=== PATIENT | female | born 1990 | race Caucasian/White ===

== ENCOUNTER → 2022-10-21 16:19 | Outpatient (CLI) | payer MEDICAID, SELFPAY ==
--- NOTE | 2022-10-21 16:19 | US_ITS ---
FINAL REPORT CLINICAL HISTORY: right lower quadrant pain FINDINGS: Transvaginal sonographic images of the pelvis were obtained. The uterus measures 8.0 x 5.2 x 4.0 cm. The endometrium measures 7 mm, which is within normal limits. No uterine mass is identified. The right ovary measures 2.6 cm in length and left ovary measures 2 point cm in length. Normal blood flow seen to the ovaries. Small follicles are present in both ovaries. There is no evidence of free fluid. IMPRESSION: No acute abnormality identified. Reviewed, Interpreted and Dictated by Ronny Dunlap III, MD Transcribed by Caity Mccormack Authenticated and [facility]
== END ==
PROVIDERS: PCP Nurse Practitioner Family; Visit Provider Nurse Practitioner Obstetrics & Gynecology
DX: R10.31 Right lower quadrant pain (principal)
CPT/HCPCS: 76830

== ENCOUNTER → 2022-12-11 11:21 | Outpatient (CLI) | payer MEDICAID, SELFPAY ==
[2022-12-11 12:30] LABS: Basophils # 0.1 K/mm3 (0-0.2); Basophils % 1.1 % (0.1-2.0); Eosinophils # 0.5 K/mm3 (0.0-0.4); Hematocrit 42.1 % (37.0-47.0); Hemoglobin 13.6 g/dL (12.2-16.2); Lymphocytes # 2.3 K/mm3 (0.7-4.5); Lymphocytes % 25.1 % (10-50); Mean Corpuscular HGB Conc 32.3 g/dL (31.8-35.4); Mean Corpuscular Hemoglobin 31.7 pg (27.0-31.2); Mean Corpuscular Volume 97.9 fl (81-99); Monocytes # 0.4 K/mm3 (0.1-1.0); Neutrophils % 64.8 % (37.0-80.0); Platelet Count 445 K/mm3 (142-424); Red Cell Distribution Width 13.7 % (11.5-17.5); White Blood Count 9.3 K/mm3 (4.8-10.8)
[2022-12-11 12:54] LABS: Alanine Aminotransferase 235 U/L (12-78); Albumin Level 4.1 g/dl (3.5-5.0); Albumin/Globulin Ratio 1.6 (1.1-1.8); Alkaline Phosphatase 93 U/L (38-126); Anion Gap 12.4 mEq/L (5-15); Aspartate Amino Transferase 86 U/L (14-36); Bilirubin,Total 0.3 mg/dl (0.2-1.3); Blood Urea Nitrogen 15 mg/dl (7-17); Calcium 9.2 mg/dl (8.4-10.2); Carbon Dioxide 30 mmol/L (22.0-30.0); Chloride 104 mmol/L (98-107); Estimated Glomerular Filt Rate 84 ml/min (>60); GFR (African American) 101 ML/MIN (>60); Globulin 2.5 g/dL (1.3-3.2); Glucose 97 mg/dl (74-100); Potassium 4.4 mmoL/L (3.5-5.1); Sodium 142 mmol/L (136-145); Total Protein,Serum 6.6 g/dl (6.3-8.2)
[2022-12-11 13:20] LABS: HCG,Quantitative < 2 mIU/ml (0-5.42)
== END ==
PROVIDERS: PCP Family Medicine; Visit Provider Nurse Practitioner Obstetrics & Gynecology
DX: Z01.812 Encounter for preprocedural laboratory examination (principal); N80.9 Endometriosis, unspecified
CPT/HCPCS: 36415; 80053; 84702; 85025

== ENCOUNTER 2022-12-16 06:41 | Day surgery (SDC) | payer MEDICAID, SELFPAY ==
--- NOTE | 2022-12-15 09:29 | SUR.PREOP ---
Attempted to call patient regarding procedure tomorrow, no voicemail is set up. Will try again in the afternoon.
[2022-12-16] VITALS (10 sets, daily range): BP systolic 106–155; BP diastolic 66–91; PULSE 88–117; RESP 12–18; TEMP 36.8–37.2; O2SAT 93–98; BMI 43.1
--- NOTE | 2022-12-16 08:27 | EXP.ANES.CKL ---
[facility] Disclaimer: The information contained in this section may have been updated after the patient was seen, as this information can be updated by other users. Medical History Anxiety Depression History of bipolar disorder Surgical History H/O tubal ligation History of delivery Family History Other Anemia Asthma Cancer Diabetes FHx: mental illness Heart attack Hyperlipidemia Hypertension Kidney disease Stroke Substance abuse Thyroid disorder Social History Smoking Status: Current every day smoker alcohol intake: current substance use type: marijuana current occupational status: employed Travel in the last 8 weeks: None [facility] Anesthesia Checklist Patient Identification Patient Identification: Arm Band and Verbal (Name & ) Structural Data Planned Operative Procedure/s: diag lap Consent for Planned Operative Procedure(s) Verified: Yes Verified Documents: Surgical Consent NPO Status Verified Time NPO: 00:00 Additional verifications Patient : No Hx Blood Transfusions: No Blood Transfusion Reaction: No Airway Assessment C-Spine Mobility Assessed: Yes TMJ Mobility Assessed: Yes Dentition: Partials Neurological Assessment Level of Consciousness: Awake and Alert Hx Seizures: No Genitourinary Assessment Urinary Incontinence: None Psychosocial Assessment Concerns Regarding Surgery: anxiety Anesthesia Plan Anesthesia Risk discussed: Yes ASA Class: II Anesthesia Type: General
--- NOTE | 2022-12-16 09:57 | EXP.ANES.I ---
[facility] Anesthesia Record Part I Anesthesia Record I Intake, IV Amount: 700 Estimated blood loss (mL): 50 Urine output (mL): 25 Blood Pressure: 145/79 SaO2: 98 Pulse Rate: 107 Respiratory Rate: 12 Temperature: 98.4 F Patient is:: Awake and Stable Stable to PACU at:: 09:57
--- NOTE | 2022-12-16 09:57 | EXP.OP.NOTE ---
Date of procedure: 12/16/22 Pre-op Diagnosis:: Right lower quadrant pain, dysmenorrhea, possible endometriosis, possible appendicitis Post-op Diagnosis:: Right lower quadrant pain, dysmenorrhea, endometriosis of left pelvic sidewall, endometriosis of right anterior abdominal wall. Bilateral hydrosalpinx, possible chronic appendicitis Procedure performed:: Diagnostic laparoscopy, resection of endometriosis, cautery of endometriosis, laparoscopic appendectomy, removal of bilateral hydrosalpinx Surgeon:: Benito Rice MD MARGIN TRIMMER:: Other (Rajani Gandara) Anesthesia: GETA Estimated blood loss (mL): 50 Clinical Note:: She is a 32-year-old lady who complains of severe pain with her periods as well as chronic right lower quadrant pain. She was tender over McBurney's point. She says the pain really never goes away. She has a family history of endometriosis. After having discussed the risks and benefits we elected perform a diagnostic laparoscopy with possible resection of endometriosis as well as laparoscopic appendectomy for right-sided pain. Operative findings:: She had an area of endometriosis on the anterior right abdominal wall. It was approximately 5 mm in size. Her appendix looked normal but was rather stiff to palpate. She had bilateral hydrosalpinx from her previous Falope ring tubal ligation. The knuckles of tissue seem to have this hydrosalpinx. There was an area on the left pelvic sidewall overlying the uterosacral ligament that was somewhat hyperpigmented possibly consistent with old endometriosis. The rest the pelvis appeared normal. The upper abdomen appeared normal. Both ovaries appeared normal. There was a small follicle on the left ovary. Operative note:: She was taken the operating room where general anesthesia was found to be adequate. She was prepped and draped in the normal sterile fashion in the semilithotomy position. Weighted speculum placed in vagina and the antilipid the cervix was grasped with a tenaculum. We then inserted a Sonali uterine manipulator into the uterine cavity. I changed gloves and then repositioned the patient. I injected 10 cc of ropivacaine around the umbilicus and then made a small incision within the umbilicus. I inserted a Veress needle into the abdominal cavity. The abdominal cavity was then insufflated with carbon oxide gas to a pressure of 20 mmHg. I then inserted a 12 mm trocar under direct vision. I injected through and through at the pubic hairline, made a small incision and under direct vision inserted a 5 mm trocar here. I then injected through and through in the left lower quadrant lateral to the inferior epigastric arteries and inserted a 5 mm trocar here under direct vision. The findings were as previously dictated. I then grasped the anterior wall peritoneum and using harmonic scalpel remove this endometriosis in its entirety. I then turned my attention to the deep pelvis where we had seen endometriosis on the left pelvic sidewall. Using harmonic scalpel I cauterized the peritoneum overlying the uterosacral ligament. There was an area approximately 5 mm here. The rest the pelvis appeared normal. I then turned my attention to the tubes where there were approximately centimeter sized hydrosalpinx. Using harmonic scalpel I removed these in their entirety. These were placed in the cul-de-sac to be retrieved later. I then turned my attention to her appendix. I then grasped her appendix and using harmonic scalpel I was able to cut and cautery through the mesoappendix. I then changed camera's and using a 5 mm trocar through the suprapubic port I grasped the appendix. I then placed an Endo TAMAR stapler through the 12 mm trocar site and clamped across the base of the appendix. I then fired the stapler. There was a small amount of tissue that needed to be cut with harmonic scalpel. This freed up the appendix. The appendix was then placed in an Endo Catch bag along with the 2 samples from the fallopian
--- NOTE | 2022-12-16 11:25 | SUR.PHASEII ---
pt is waiting on meds to bed.
--- NOTE | 2022-12-17 10:07 | EXP.ANES.II ---
[facility] Anesthesia Record Part II Anesthesia Record Part II Discharge Time: 10:27 Destination: Surgical Day Care (OP Surgery) PACU nurse assessment reviewed?: Yes Patient Condition:: Good Anesthesia Complications:: None Swallowing reflex intact?: Yes Cyanosis?: No Blood Pressure: 140/80 Pulse Rate: 104 Temperature: 98.4 F Mental Status: Alert & Oriented Pain level:: 0 Nausea and/or vomitting:: None Intake, IV Amount: 0
[2022-12-17 10:08] VITALS: BP 140/80; PULSE 104; TEMP 36.9
== END 2022-12-16 11:53 | disposition home or self-care (01) ==
PROVIDERS: PCP Family Medicine; Visit Provider Nurse Practitioner Obstetrics & Gynecology
PROC: (CPT 49320; principal; 2022-12-16 08:30)
DX: N94.6 Dysmenorrhea, unspecified (principal); R10.31 Right lower quadrant pain; N80.C19 Endometriosis of the anterior abdominal wall, unspecified depth; K37 Unspecified appendicitis
CPT/HCPCS: 58662; 44979; 96374; J2405

== ENCOUNTER → 2023-05-14 11:49 | Outpatient (CLI) | payer MEDICAID, SELFPAY ==
[2023-05-14 12:44] LABS: Basophils # 0.1 K/mm3 (0-0.2); Basophils % 1.1 % (0.1-2.0); Eosinophils # 0.6 K/mm3 (0.0-0.4); Eosinophils % 6.4 % (0.1-12.0); Hematocrit 39.2 % (37.0-47.0); Hemoglobin 13.5 g/dL (12.2-16.2); Lymphocytes # 2.4 K/mm3 (0.7-4.5); Mean Corpuscular HGB Conc 34.5 g/dL (31.8-35.4); Mean Corpuscular Hemoglobin 33.7 pg (27.0-31.2); Mean Corpuscular Volume 97.6 fl (81-99); Mean Platelet Volume 7.7 fl (7.4-10.4); Monocytes # 0.3 K/mm3 (0.1-1.0); Monocytes % 3.9 % (1.7-9.3); Neutrophils # 5.3 K/mm3 (1.8-7.8); Neutrophils % 60.6 % (37.0-80.0); Platelet Count 395 K/mm3 (142-424); Red Blood Count 4.02 M/mm3 (4.20-5.40); White Blood Count 8.7 K/mm3 (4.8-10.8)
[2023-05-14 13:52] LABS: Alanine Aminotransferase 47 U/L (12-78); Albumin Level 3.8 g/dl (3.5-5.0); Albumin/Globulin Ratio 1.7 (1.1-1.8); Alkaline Phosphatase 77 U/L (38-126); Anion Gap 9.6 mEq/L (5-15); Aspartate Amino Transferase 40 U/L (14-36); Blood Urea Nitrogen 10 mg/dl (7-17); Calcium 8.8 mg/dl (8.4-10.2); Carbon Dioxide 29 mmol/L (22.0-30.0); Chloride 106 mmol/L (98-107); Estimated Glomerular Filt Rate 97 ml/min (>60); GFR (African American) 117 ML/MIN (>60); Globulin 2.2 g/dL (1.3-3.2); Glucose 97 mg/dl (74-100); Potassium 3.6 mmoL/L (3.5-5.1); Sodium 141 mmol/L (136-145)
[2023-05-14 13:56] LABS: Bilirubin,Total 0.1 mg/dl (0.2-1.3)
[2023-05-14 14:09] LABS: HCG,Quantitative < 2 mIU/ml (0-5.42)
== END ==
PROVIDERS: PCP Family Medicine; Visit Provider Nurse Practitioner Obstetrics & Gynecology
DX: N80.9 Endometriosis, unspecified (principal)
CPT/HCPCS: 36415; 80053; 84702; 85025

== ENCOUNTER 2023-05-21 09:32 | Observation (INO) | payer MEDICAID, SELFPAY ==
[2023-05-21] VITALS (22 sets, daily range): BP systolic 109–159; BP diastolic 63–93; PULSE 104–122; RESP 16–22; TEMP 36–36.8; O2SAT 90–99; BMI 41.0
--- NOTE | 2023-05-21 08:20 | P.PNANES_ITS ---
[facility] Disclaimer: The information contained in this section may have been updated after the patient was seen, as this information can be updated by other users. Medical History Anxiety Depression History of bipolar disorder Surgical History H/O tubal ligation History of appendectomy History of delivery History of laparoscopy Family History Other Anemia Asthma Cancer Diabetes FHx: mental illness Heart attack Hyperlipidemia Hypertension Kidney disease Stroke Substance abuse Thyroid disorder Social History Smoking Status: Current every day smoker alcohol intake: never substance use type: marijuana current occupational status: employed Travel in the last 8 weeks: None [facility] Anesthesia Checklist Patient Identification Patient Identification: Verbal (Name & ) Structural Data Admitted From: Home Planned Operative Procedure/s: [facility] Consent for Planned Operative Procedure(s) Verified: Yes NPO Status Verified Time NPO: 00:00 Additional verifications Anesthesia Reactions: No Hx Blood Transfusions: No Blood Transfusion Reaction: No Airway Assessment Mallampati Score:: Class II C-Spine Mobility Assessed: Yes TMJ Mobility Assessed: Yes Dentition: Dentures-good fit Neurological Assessment Level of Consciousness: Awake, Alert and Appropriate Anesthesia Plan Anesthesia Risk discussed: Yes Anesthesia Plan: Verified ASA Class: II Anesthesia Type: General
--- NOTE | 2023-05-21 09:26 | EXP.OP.NOTE ---
Date of procedure: 05/21/23 Pre-op Diagnosis:: Pelvic pain, endometriosis, dysmenorrhea, dyspareunia Post-op Diagnosis:: Pelvic pain, endometriosis, dysmenorrhea, dyspareunia Procedure performed:: Laparoscopically assisted vaginal hysterectomy, right salpingo-oophorectomy, left salpingectomy, Surgeon:: Benito Rice MD Application Packaging Specialist(s):: Dr. Negro PATROL GUARD:: Other (Corrine العراقي) Anesthesia: GETA Estimated blood loss (mL): 100 Clinical Note:: She is a 31-year-old lady who complains of severe dysmenorrhea, pelvic pain and dyspareunia. She has had a previous laparoscopy that confirmed endometriosis. As result of this she was offered laparoscopic-assisted vaginal hysterectomy and right salpingo-oophorectomy as well as left salpingectomy. She had constant right lower quadrant pain. Operative findings:: She had an anteverted somewhat bulky uterus. The ovaries appeared normal. The tubes appeared normal. They have been previously ligated. There was a spot of endometriosis on the bladder flap. There was also a small piece of endometriosis on the right uterine cornua. The rest the pelvis appeared normal. She had had a previous appendectomy by me. Operative note:: She was taken to the operating room where general anesthesia was found be adequate. She was prepped and draped in normal sterile fashion in the semilithotomy position. A weighted speculum was placed in the vagina and the anterior lip of the cervix was grasped with a tenaculum. An acorn uterine manipulator was then placed within the cervical os. I then changed gloves. I injected 10 cc of 0.5% ropivacaine around the umbilicus and made a small incision within the umbilicus. I inserted a Veress needle into the abdominal cavity. The abdominal cavity was then insufflated with carbon dioxide gas to a pressure of 20 mmHg. I then inserted an 11 mm trocar under direct vision. I injected through and through the pubic hairline, made a small incision here and inserted a 5 mm trocar under direct vision. I identified the inferior epigastric arteries on the left side, went lateral to these and injected through and through. I then made a small incision and inserted an 11 mm trocar under direct vision. A similar 11 mm trocar was placed on the right side. The left round ligament was then grasped and cut through with harmonic scalpel. This was followed by opening up the peritoneum anteriorly to the midline. I then grasped the tube on the left side and cut through this. This is followed by cutting through the left utero-ovarian ligament. I used Harmonic scalpel on the coagulation mode. I then took down the posterior aspect of the broad ligament to the level of the uterosacral ligament. I then skeletonized the uterine arteries on the left side and placed hemoclips on these. Using the harmonic scalpel on coagulation mode adjacent to the cervix I then took down these uterine arteries. I then further freed up the bladder anteriorly and laterally on the left side. I then turned my attention to the right side where I grasped the right round ligament and cut through this with harmonic scalpel.. The right tube was cut with harmonic scalpel. I then took down the anterior peritoneum to the midline joining up with the other side. I further dissected the bladder off. The posterior aspect of the right broad ligament was then taken down with harmonic scalpel. I skeletonized the uterine arteries on the right side. I applied hemoclips to the uterine arteries and staying adjacent to the cervix on the right side I took down the uterine arteries with harmonic scalpel on coagulation mode. I further freed up the bladder. We then assured hemostasis. I then freed up the right ovary and tube on the infundibulopelvic ligament. I then put Endoloops on the infundibulopelvic ligament and cut away the ovary and tube. This was placed in the pelvis to be retrieved at the vaginal portion of the surgery. I then turned my attention to t
--- NOTE | 2023-05-21 09:29 | P.PNANES_ITS ---
[facility] Anesthesia Record Part I Anesthesia Record I Intake, IV Amount: 900 Hydration: Adequate Estimated blood loss (mL): 100 Urine output (mL): 50 Blood Products used (#): none Blood Pressure: 147/75 SaO2: 90 Pulse Rate: 122 Airway Patency: Patent Respiratory Rate: 18 Temperature: 96.8 F Patient is:: Awake (Talking) and Stable Stable to PACU at:: 09:28
--- NOTE | 2023-05-21 10:00 | HMH.PHAINT1 ---
Pharmacy Intervention Comments: MEDICATION RECONCILIATION COMPLETED ON PATIENT USING EXTERNAL FILL HISTORY FROM PHARMACY. -[place] SARMIENTO, JERSOND
[2023-05-21 12:40] LABS: Microscopic,Cath URINE MICROSCOPIC (MICROSCOPIC)
[2023-05-21 12:46] LABS: Appearance,Urine/Cath CLEAR (Clear); Bilirubin,Cath Negative (Negative); Blood, Urine/Cath Negative (Negative); Color,Urine/Cath YELLOW (Yellow); Glucose,Urine/Cath (UA) Negative (Negative); Ketones,Urine/Cath Negative (Negative); Leukocyte Esterase,Cath Negative (Negative); Nitrate,Cath Negative (Negative); Protein,Urine/Cath 1+ (Negative); Specific Gravity, Urine/Cath >= 1.030 (1.005-1.030); Urobilinogen,Cath 0.2 EU/dl (0.2)
--- NOTE | 2023-05-21 12:57 | PC.NURSE ---
mother of the patient came to nurses station requesting pt to be pulled up in bed. upon entering room call light laying on pt's chest. pt's mom asked Karly Miah, Are you going to come to this side? when attempting to get to patient to pull her up. pt readjusted in bed and declines any other requests. call light w/i reach. upon going to exit patients room, pts mother stated she needs her pain medicine at 1:30 pt's mother educated on prn pain medication and patient having to call out for as needed medication.
--- NOTE | 2023-05-21 13:11 | P.PNANES_ITS ---
[facility] Anesthesia Record Part II Anesthesia Record Part II Discharge Time: 09:53 Destination: Obstetric PACU nurse assessment reviewed?: Yes Patient Condition:: Good Anesthesia Complications:: None Swallowing reflex intact?: Yes Airway Patency: Patent Cyanosis?: No Blood Pressure: 159/89 SaO2: 97 Respiratory Rate: 19 Pulse Rate: 117 Temperature: 97.8 F Mental Status: Alert & Oriented Pain level:: 5 Nausea and/or vomitting:: None Intake, IV Amount: 0 Hydration: Adequate
--- NOTE | 2023-05-21 15:43 | PC.NURSE ---
Dr. Rice at bedside. states pt may have regular diet, remove f/c and to have dx change prior to d/c tomorrow. aware of pt's heart rate of 107-120 bpm.
--- NOTE | 2023-05-21 16:35 | PC.NURSE ---
pt got up and ambulated around the room with assistance. pt tolerated well. pt back in bed and call light w/i reach.
--- NOTE | 2023-05-21 17:14 | EXP.HP ---
History of Present Illness *Admission Date: 05/21/23 *Reason for visit:: LAVH, RSO, left salpingectomy *History of present illness: She is a 33-year-old lady and she continues to have severe pain with intercourse as well as pelvic pain in general. When I examined her she was exquisitely tender in the uterus. She has tenderness in the right lower quadrant. She would like to go ahead with a hysterectomy. Given the fact that we have tried Orilissa, laparoscopy that proved the presence of endometriosis and she has had no relief despite all of this I think she would be a good candidate for LAVH. ? We will go ahead with an LAVH as well as a right salpingo oophorectomy since she has this right-sided pain. We will also do a left salpingectomy. She has had a laparoscopic appendectomy in the past as well. [facility] Disclaimer: The information contained in this section may have been updated after the patient was seen, as this information can be updated by other users. Medical History Anxiety Depression History of bipolar disorder Surgical History H/O tubal ligation History of appendectomy History of delivery History of laparoscopy Status post laparoscopic assisted vaginal hysterectomy Family History Substance abuse Diabetes Anemia Hyperlipidemia Kidney disease Heart attack FHx: mental illness Cancer Hypertension Thyroid disorder Stroke Asthma Social History Smoking Status: Current every day smoker alcohol intake: never substance use type: marijuana current occupational status: employed Travel in the last 8 weeks: None Review of Systems Review of Systems Review of systems:: pertinent systems reviewed and negative unless documented below Meds Home Medications and Allergies Home Medications Medication Instructions Recorded Confirmed Type aripiprazole 10 mg tablet 10 mg PO DAILY mood 12/11/22 05/21/23 History buspirone 15 mg tablet 15 mg PO BIDP PRN Anxiety 12/11/22 05/21/23 History ibuprofen 800 mg tablet 800 mg PO TIDP PRN Mild Pain 05/21/23 05/21/23 History (Scale Score 1-4) New Prescriptions to Start Prescriptions: Allergies Allergy/AdvReac Type Severity Reaction Status Date / Time No Known Allergies Allergy Verified 05/21/23 06:20 Exam Data for Last 24 hours Vital signs and Labs for Last 24 Hours: Temp Pulse Resp BP Pulse Ox O2 Del Method 98.1 F 113 H 18 139/84 94 L Room Air 05/21/23 13:00 05/21/23 17:00 05/21/23 17:00 05/21/23 17:00 05/21/23 17:00 05/21/23 17:00 Laboratory Results - last 24 hr 05/21/23 08:25: Urine Color Yellow, Urine Appearance Clear, Urine pH 6.0, Ur Specific [place] >= 1.030, Urine Protein 1+, Urine Glucose (UA) Negative, Urine Ketones Negative, Urine Blood Negative, Urine Nitrate Negative, Urine Bilirubin Negative, Urine Urobilinogen 0.2, Ur Leukocyte Esterase Negative, Urine RBC None, Urine WBC None, Ur Squamous Epith Cells None I & O for Last 24 hours: Intake & Output 05/19/23 05/20/23 05/21/23 05/22/23 11:59 11:59 11:59 11:59 Intake Total 900 / 900 0 / 0 Output Total 175 / 175 Balance 900 / 900 -175 / -175 Weight 210 lb Constitutional Constitutional: no acute distress *Routine HEENT Exam Head: Present normocephalic Eye: Present EOMI and PERRL ENT: Present mucous membranes moist *Routine Neck Exam Neck: Present supple; Absent lymphadenopathy *Routine Respiratory Exam Respiratory: Present CTA bilaterally *Routine Cardiovascular Exam Cardiovascular: Present RRR *Routine Abdominal Exam Abdominal: Present soft and normoactive bowel sounds; Absent tenderness *Routine Rectal Exam Rectal:: deferred *Routine Genitalia Exam Genitalia:: deferred *Routine Extremities Exam Extremities: Absent cyanosis, clubbing
--- NOTE | 2023-05-21 17:20 | PC.NURSE ---
lab called in regards to orders (H&H)
--- NOTE | 2023-05-21 17:21 | PC.NURSE ---
pt alert and oriented. lung sounds cta. abdomen round, soft, bowel sounds active. [address] on abdomen with telfa and tegaderm in place. scant amount of drainage to right sided dressing. no change from previous assessment. pt f/c was removed. pt was able to get up and walk around the room with standby assessment. pt back to bed with scuds in place. pt has requested prn pain meds around the clock. non-pharmacological pain interventions tried with repositioning and lighting. call light w/i reach. pt instructed to call for assistance.
--- NOTE | 2023-05-21 17:51 | PC.NURSE ---
labs sent at this time per nurse.
[2023-05-21 18:11] LABS: Hematocrit 37.3 % (37.0-47.0); Hemoglobin 12.6 g/dL (12.2-16.2)
--- NOTE | 2023-05-21 18:54 | PC.NURSE ---
pt assisted to the bathroom with standby assistance, pt reports dribbles.
[2023-05-22 00:32] VITALS: BP 134/76; PULSE 112; RESP 18; TEMP 36.4; O2SAT 95
--- NOTE | 2023-05-22 03:51 | PC.NURSE ---
Pt alert and oriented. lung sounds cta. abdomen soft, non-distended, bowel sounds present in all quadrants. four laparotomy sites still intact with telfa and tape, small amount of drainage noted on right dressing site. no changes from previous assessment. pt has rested throughout the night. pt rates pain 4/10 at this time. pt denies needs. call light w/i reach.
[2023-05-22 03:55] VITALS: BP 134/81; PULSE 114; RESP 17; TEMP 36.7; O2SAT 98
[2023-05-22 06:56] LABS: Basophils # 0.1 K/mm3 (0-0.2); Basophils % 0.5 % (0.1-2.0); Eosinophils # 0.2 K/mm3 (0.0-0.4); Eosinophils % 1.5 % (0.1-12.0); Hematocrit 36.4 % (37.0-47.0); Hemoglobin 12.4 g/dL (12.2-16.2); Lymphocytes % 20.4 % (10-50); Mean Corpuscular HGB Conc 34.1 g/dL (31.8-35.4); Mean Corpuscular Hemoglobin 34.2 pg (27.0-31.2); Mean Corpuscular Volume 100.2 fl (81-99); Monocytes # 0.6 K/mm3 (0.1-1.0); Monocytes % 4.2 % (1.7-9.3); Neutrophils # 10.7 K/mm3 (1.8-7.8); Neutrophils % 73.3 % (37.0-80.0); Platelet Count 372 K/mm3 (142-424); Red Blood Count 3.63 M/mm3 (4.20-5.40); Red Cell Distribution Width 13.8 % (11.5-17.5); White Blood Count 14.6 K/mm3 (4.8-10.8)
[2023-05-22 08:05] VITALS: BP 140/88; PULSE 122; RESP 18; TEMP 36.7; O2SAT 95
--- NOTE | 2023-05-22 11:21 | PC.NURSE ---
pt ringing out asking about when she will be discharged. called dr lloyd's office. staff stated she is in a procedure and has another one after this one so; we won't be out until around 12pm. pt informed and verbalized understanding.
[2023-05-22 11:59] VITALS: BP 127/91; PULSE 109; RESP 18; TEMP 36.7; O2SAT 96
[2023-05-22 12:49] LABS: Chloride 107 mmol/L (98-107); Potassium 3.4 mmoL/L (3.5-5.1); Sodium 137 mmol/L (136-145)
[2023-05-22 12:52] LABS: Anion Gap 6.4 mEq/L (5-15); Blood Urea Nitrogen 8 mg/dl (7-17); Calcium 8.1 mg/dl (8.4-10.2); Carbon Dioxide 27 mmol/L (22.0-30.0); Creatinine Clearance Estimated 202 mL/min (50-200); Estimated Glomerular Filt Rate 116 ml/min (>60); GFR (African American) 140 ML/MIN (>60); Glucose 100 mg/dl (74-100)
--- NOTE | 2023-05-22 15:49 | EXP.DC.SUM ---
General Admission date:: 05/21/23 Discharge date: 05/22/23 HPI HPI HPI: She is a 33-year-old lady and she continues to have severe pain with intercourse as well as pelvic pain in general. When I examined her she was exquisitely tender in the uterus. She has tenderness in the right lower quadrant. She would like to go ahead with a hysterectomy. Given the fact that we have tried Orilissa, laparoscopy that proved the presence of endometriosis and she has had no relief despite all of this I think she would be a good candidate for LAVH. ? We will go ahead with an LAVH as well as a right salpingo oophorectomy since she has this right-sided pain. We will also do a left salpingectomy. She has had a laparoscopic appendectomy in the past as well. Hospital Course Hospital Course Hospital Course: Jose Luis is postop day 1 from laparoscopic assisted vaginal hysterectomy. There were no complications. She is tolerating a normal diet without nausea or vomiting. She is voiding without dysuria. She is ambulating and tolerating p.o. without problems. Reports that the p.o. pain medication controls her pain well. Patient will be discharged home and all routine discharge options reviewed with the patient in detail and she was understanding. She will follow-up with Dr. Patel in 1 to 2 weeks Exam Data for Last 24 hours Vital signs and Labs for Last 24 Hours: Temp Pulse Resp BP Pulse Ox O2 Del Method 98.0 F 109 H 18 127/91 H 96 Room Air 05/22/23 11:59 05/22/23 11:59 05/22/23 11:59 05/22/23 11:59 05/22/23 11:59 05/22/23 14:00 Laboratory Results - last 24 hr 05/21/23 17:49: Hgb 12.6, Hct 37.3 05/22/23 06:32: WBC 14.6 H, RBC 3.63 L, Hgb 12.4, Hct 36.4 L, MCV 100.2 H, MCH 34.2 H, MCHC 34.1, RDW 13.8, Plt Count 372, MPV 8.0, Neut % (Auto) 73.3, Lymph % (Auto) 20.4, [place] % (Auto) 4.2, Eos % (Auto) 1.5, Baso % (Auto) 0.5, Neut # (Auto) 10.7 H, Lymph # (Auto) 3.0, [place] # (Auto) 0.6, Eos # (Auto) 0.2, Baso # (Auto) 0.1, Sodium 137, Potassium 3.4 L, Chloride 107, Carbon Dioxide 27, Anion Gap 6.4, BUN 8, Creatinine 0.60, Estimated Creat Clear 202, Estimated GFR 116, Est GFR ( Amer) 140, Glucose 100, Calcium 8.1 L I & O for Last 24 hours: Intake & Output 05/19/23 05/20/23 05/21/23 05/22/23 23:59 23:59 23:59 23:59 Intake Total 900 / 900 Output Total 675 / 675 400 / 400 Balance 225 / 225 -400 / -400 Weight 210 lb Constitutional Constitutional: no acute distress *Routine HEENT Exam Head: Present normocephalic Eye: Present EOMI and PERRL ENT: Present mucous membranes moist *Routine Neck Exam Neck: Present supple; Absent lymphadenopathy *Routine Respiratory Exam Respiratory: Present CTA bilaterally *Routine Cardiovascular Exam Cardiovascular: Present RRR *Routine Abdominal Exam Abdominal: Present soft and normoactive bowel sounds; Absent tenderness *Routine Extremities Exam Extremities: Absent cyanosis, clubbing or edema *Routine Skin Exam Skin: Present warm; Absent rash Comments: Laparoscopic incisions covered by bandage. They are dry. No signs of infection *Routine Neurological Exam Neurological: Present alert and oriented X3 Results Data Completed and Pending Labs on day of discharge: Labs from last 24 hours 05/22/23 05/21/23 06:32 17:49 WBC 14.6 H RBC 3.63 L Hgb 12.4 12.6 Hct 36.4 L 37.3 MCV 100.2 H MCH 34.2 H MCHC 34.1 RDW 13.8 Plt Count 372 MPV 8.0 Neut % (Auto) 73.3 Lymph % (Auto) 20.4 [place] % (Auto) 4.2 Eos % (Auto) 1.5 Baso % (Auto) 0.5 Neut # (Auto) 10.7 H Lymph # (Auto) 3.0 [place] # (Auto) 0.6 Eos # (Auto) 0.2 Baso # (Auto) 0.1 Sodium 137 Potassium 3.4 L Chloride 107 Carbon Dioxide 27 Anion Gap 6.4 BUN 8 Creatinine 0.60 Estimated Creat Clear 202 Estimated GFR 116 Est GFR ( Amer) 140 Glucose 100 Calcium 8.1 L DS: Diagnosis Discharge Diagnosis (1) Right lower quadrant pain: Status: Acute
== END 2023-05-22 16:09 | disposition home or self-care (01) ==
LOC: OB 05-22 00:31
PROVIDERS: Admitting Provider Nurse Practitioner Obstetrics & Gynecology; PCP Family Medicine; Visit Provider Nurse Practitioner Obstetrics & Gynecology
PROC: 0UT9FZZ Resection of Uterus, Via Natural or Artificial Opening With Percutaneous Endoscopic Assistance (ICD-10-PCS; CPT 58552; principal; 2023-05-21 07:30)
DX: R10.2 Pelvic and perineal pain (principal); N94.6 Dysmenorrhea, unspecified; N94.10 Unspecified dyspareunia; N80.9 Endometriosis, unspecified
CPT/HCPCS: 58552; 36415; 80048; 81001; 85014; 85018; 85025; 96374; G0378; J2405

== ENCOUNTER 2024-03-08 10:52 | Outpatient (CLI) | payer MEDICAID, SELFPAY ==
[2024-03-08 11:21] LABS: Basophils # 0.1 K/mm3 (0-0.2); Eosinophils # 0.2 K/mm3 (0.0-0.4); Eosinophils % 1.8 % (0.1-12.0); Hematocrit 40.4 % (37.0-47.0); Hemoglobin 12.9 g/dL (12.2-16.2); Lymphocytes # 2.7 K/mm3 (0.7-4.5); Lymphocytes % 27.6 % (10-50); Mean Corpuscular Hemoglobin 32.3 pg (27.0-31.2); Mean Corpuscular Volume 101.1 fl (81-99); Mean Platelet Volume 8.3 fl (7.4-10.4); Monocytes # 0.5 K/mm3 (0.1-1.0); Neutrophils # 6.3 K/mm3 (1.8-7.8); Neutrophils % 64.6 % (37.0-80.0); Platelet Count 344 K/mm3 (142-424); Red Blood Count 3.99 M/mm3 (4.20-5.40); Red Cell Distribution Width 14.1 % (11.5-17.5); White Blood Count 9.7 K/mm3 (4.8-10.8)
[2024-03-08 11:32] LABS: Albumin Level 3.3 g/dl (3.5-5.0); Chloride 110 mmol/L (98-107)
[2024-03-08 11:33] LABS: Potassium 3.6 mmoL/L (3.5-5.1); Sodium 139 mmol/L (136-145)
[2024-03-08 11:35] LABS: Blood Urea Nitrogen 12 mg/dl (7-17); Estimated Glomerular Filt Rate 83 ml/min (>60); GFR (African American) 101 ML/MIN (>60)
[2024-03-08 11:36] LABS: Alanine Aminotransferase 26 U/L (12-78); Albumin/Globulin Ratio 1.5 (1.1-1.8); Alkaline Phosphatase 67 U/L (38-126); Anion Gap 3.6 mEq/L (5-15); Aspartate Amino Transferase 28 U/L (14-36); Bilirubin,Total 0.4 mg/dl (0.2-1.3); Calcium 8.5 mg/dl (8.4-10.2); Carbon Dioxide 29 mmol/L (22.0-30.0); Globulin 2.2 g/dL (1.3-3.2); Glucose 102 mg/dl (74-100); Total Protein,Serum 5.5 g/dl (6.3-8.2)
[2024-03-08 11:53] LABS: HCG,Quantitative < 2 mIU/ml (0-5.42)
== END 2024-03-08 23:59 | disposition home or self-care (01) ==
LOC: LAB 10:53
PROVIDERS: PCP Family Medicine; Visit Provider Nurse Practitioner Obstetrics & Gynecology
DX: N80.9 Endometriosis, unspecified (principal)
CPT/HCPCS: 36415; 80053; 84702; 85025

== ENCOUNTER 2024-03-10 07:35 | Day surgery (SDC) | payer MEDICAID, SELFPAY ==
[2024-03-08 10:41] VITALS: BMI 42.4
[2024-03-10] VITALS (9 sets, daily range): BP systolic 115–130; BP diastolic 71–89; PULSE 89–110; RESP 16–18; TEMP 36.3–36.7; O2SAT 95–100
--- NOTE | 2024-03-10 08:07 | EXP.ANES.CKL ---
[facility] Disclaimer: The information contained in this section may have been updated after the patient was seen, as this information can be updated by other users. Medical History Dysmenorrhea Depression Anxiety History of bipolar disorder Surgical History Status post laparoscopic assisted vaginal hysterectomy History of laparoscopy History of appendectomy History of delivery H/O tubal ligation Family History Other Anemia Asthma Cancer Diabetes FHx: mental illness Heart attack Hyperlipidemia Hypertension Kidney disease Stroke Substance abuse Thyroid disorder Social History Smoking Status: Current every day smoker alcohol intake: never substance use type: marijuana current occupational status: employed Travel in the last 8 weeks: None [facility] Anesthesia Checklist Patient Identification Patient Identification: Arm Band and Verbal (Name & ) Structural Data Admitted From: Home Planned Operative Procedure/s: Dx. Laparoscopy, possible endometriosis resection, poss. BRIAN Consent for Planned Operative Procedure(s) Verified: Yes Verified Documents: Surgical Consent NPO Status Verified Time NPO: 22:00 Chart Verification Results Verified: CBC and BMP Additional verifications Patient : No Anesthesia Reactions: No Hx Blood Transfusions: No Blood Transfusion Reaction: No Cardiovascular Assessment Heart Sounds: S1 & S2 Pulse Rhythm: Irregular Peripheral Edema: No Airway Assessment Mallampati Score:: Class II C-Spine Mobility Assessed: Yes (FROM) TMJ Mobility Assessed: Yes Dentition: Poor Dentition (Upper dentures out; bottom teeth nothing lose per pt.) Neurological Assessment Level of Consciousness: Awake, Alert, Appropriate and Follows Commands Hx Seizures: No Numbness or tingling in extremities: No Anesthesia Plan Anesthesia Risk discussed: Yes Anesthesia Plan: Verified ASA Class: III Anesthesia Type: General
--- NOTE | 2024-03-10 09:39 | EXP.OP.NOTE ---
Date of procedure: 03/10/24 Pre-op Diagnosis:: Right lower quadrant pain Post-op Diagnosis:: Right lower quadrant pain Procedure performed:: Diagnostic laparoscopy Surgeon:: Benito Rice MD PROCEDURAL NURSE:: Mihai Galvez Anesthesia: RENATE Estimated blood loss (mL): 10 Clinical Note:: She is a 33-year-old lady who complains of right lower quadrant pain. She has had a previous appendectomy, RSO and hysterectomy. She kept having this pain on the right side and there was really no obvious cause for it. Ultrasound was normal. As result of that we elected to perform a diagnostic laparoscopy. Operative findings:: She had a normal-appearing pelvis. There were clips from her previous RSO. The uterus was surgically absent. The pelvis was pristine. The upper abdomen was normal. On examination of the anterior wall and right lower quadrant there were really no areas that looked abnormal. The appendiceal stump looked normal and jamie were seen. No obvious cause was found for her right lower quadrant pain. No evidence of hernias. I did not see an umbilical hernia. Operative note:: She was taken the operating room where general anesthesia was found be adequate. She prepped and draped in her sterile fashion in the semilithotomy position. A sponge forcep was placed in vagina. I injected 10 cc of 0.25% ropivacaine around the umbilicus and made a small incision within the umbilicus. A Veress needle was inserted into the abdominal cavity. The abdominal cavity was then insufflated with carbon oxide gas to a pressure of 20 mmHg. I then inserted a 5 mm trocar under direct vision. I injected through and through the pubic hairline, made a small incision here and inserted a 5 mm trocar under direct vision. The findings were as previously dictated. We looked all around the pelvis, right lower quadrant left lower quadrant and could not find any abnormalities. We then injected approximately 30 cc of 0.25% ropivacaine into the pelvis and remove the secondary trocar. The gas was out of the abdomen and the primary trocar and camera were removed together. The trocar sites were closed with subcutaneous 4-0 Monocryl suture followed by Steri-Strips. A sterile dressing was applied. She tolerated procedure well and was taken the recovery room in excellent condition. All sponge, instrument and needle counts were correct. The estimated blood loss was less than 10 cc. Condition: stable Disposition: PACU Specimens:: None Complications:: 9
--- NOTE | 2024-03-10 09:40 | P.PNANES_ITS ---
[facility] [place] Anesthesia Record Part I Anesthesia Record I Intake, IV Amount: 1,000 Hydration: Adequate Estimated blood loss (mL): 10 Urine output (mL): 0 Blood Products used (#): none Blood Pressure: 115/89 SaO2: 95 Pulse Rate: 110 Airway Patency: Patent Respiratory Rate: 16 Temperature: 98.1 F Patient is:: Drowsy and Stable Stable to PACU at:: 09:30
--- NOTE | 2024-03-12 05:57 | EXP.ANES.II ---
[facility] Anesthesia Record Part II Anesthesia Record Part II Discharge Time: 10:10 Destination: Surgical Day Care (OP Surgery) PACU nurse assessment reviewed?: Yes Patient Condition:: Good Anesthesia Complications:: None Swallowing reflex intact?: Yes Airway Patency: Patent Cyanosis?: No Blood Pressure: 118/76 SaO2: 98 Respiratory Rate: 16 Pulse Rate: 93 Temperature: 98.1 F Mental Status: Alert & Oriented Pain level:: 4 Nausea and/or vomitting:: None Intake, IV Amount: 0 Hydration: Adequate
[2024-03-12 05:58] VITALS: BP 118/76; PULSE 93; RESP 16; TEMP 36.7; O2SAT 98
== END 2024-03-10 10:41 | disposition home or self-care (01) ==
PROVIDERS: PCP Family Medicine; Visit Provider Nurse Practitioner Obstetrics & Gynecology
PROC: (CPT 49320; principal; 2024-03-10 09:15)
DX: R10.31 Right lower quadrant pain (principal)
CPT/HCPCS: 49320; 96374; J3490; J0690; J1100; J1170; J1885; J2175; J2250; J2270; J2405; J3010; J7120